=== PATIENT | female | born 1955 | race Two or more races ===

== ENCOUNTER 2021-11-12 09:58 | Outpatient (CLI) | payer OTHER | END 2021-11-12 10:11 | disposition home or self-care (01) | LOC: SONOGRAMA 09:58 | PROVIDERS: ATTEND Surgery | DX: N60.11 Diffuse cystic mastopathy of right breast (principal); N60.12 Diffuse cystic mastopathy of left breast ==

== ENCOUNTER 2022-03-18 06:02 | Day surgery (SDC) | payer OTHER ==
[~2022-03-18] VITALS: Ht 170.2 cm; Wt 90.7 kg
[~2022-03-18 06:02] MED LIST: ANASTROZOLE1 MG PO; TIROSINT50 MCG PO
== END 2022-03-18 18:30 | disposition home or self-care (01) ==
LOC: CIR.AMB 06:02
PROVIDERS: ATTEND Surgery
DX: D05.11 Intraductal carcinoma in situ of right breast (principal); C77.3 Secondary and unspecified malignant neoplasm of axilla and upper limb lymph nodes; Z20.822 Contact with and (suspected) exposure to COVID-19; E03.9 Hypothyroidism, unspecified
CPT/HCPCS: 19302; 19285; L8699